=== PATIENT | male | born 1960 | race American Indian/Alaskan Native ===

== ENCOUNTER 2019-11-23 08:28 | Day surgery (SDC) | payer OTHER ==
[2019-11-23] MEDS ORDERED: SODIUM CHLORIDE 0.9% 1000 ML 1,000 ML IV SCH (09:15)
--- NOTE | 2019-11-23 09:17 | Anesthesia Consultation ---
Anesthesia Consult and Med Hx Date of service: 11/23/19 - Airway Anesthetic Teeth Evaluation: Good ROM Head & Neck: Adequate Mental/Hyoid Distance: Adequate Mallampati Class: Class II Intubation Access Assessment: Good - Pulmonary Exam CTA: Yes - Cardiac Exam Cardiac Exam: No Murmur - Pre-Operative Health Status ASA Pre-Surgery Classification: ASA2 Proposed Anesthetic Plan: MAC - Pulmonary Hx Smoking: Yes
--- NOTE | 2019-11-23 09:18 | Anesthesia Day of Surgery ---
Anesthesia Day of Surgery - Day of Surgery Patient Examined: Yes Patient H&P Reviewed: Yes Patient is NPO: Yes
[2019-11-23] MEDS ORDERED: PROPOFOL 200 MG/20 ML VIAL IV ONE ×2 (10:00)
--- NOTE | 2019-11-23 10:23 | Procedure Note ---
Date of procedure: 11/22/19 Pre-op diagnosis: Colon Polyp Screening/ P/H/O Colon Polyps/ F/H/O Cancer (father) Post-op diagnosis: other (Solitary,Small rectal Polyp (possibly Hyperplastic)/Minor,Internal Hemorrhoid/ Normal, Ileal Mucosa) Procedure: Colonoscopy with Cold Biopsy Anesthesia: MAC Surgeon: FAISAL CLARKE Estimated blood loss: minimal Pathology: list Specimen disposition: to lab Condition: stable Disposition: same day (Avoid aspirin and NSAID for 4 days; otherwise resume home medication. follow up in 1 to 2 weeks ([phone]).)
--- NOTE | 2019-11-23 10:25 | Operative Report ---
PROCEDURE: Colonoscopy. INDICATIONS: The patient is a 59-year-old -Irish gentleman with a family history of cancer, prior history of colon polyp, who had a colonoscopy done as part of colon polyp screening. DESCRIPTION OF PROCEDURE: Procedure was done after getting informed consent with MAC anesthesia. Initial rectal exam was unremarkable. Instrument was passed through the rectum onto the cecum, which was identified by the ileocecal valve and the appendiceal orifice. Visualization was fair to good. The cecum was also visualized on the retroverted view. No additional pathology was noted. The terminal ileum was intubated showed normal mucosa, cecum, ascending colon, transverse colon, descending colon, and sigmoid showed normal mucosa. There was no evidence of any polyps, colitis or diverticular disease. The rectum showed small polyp, possibly hyperplastic, removed by cold biopsy with minimal bleeding and the rectum also showed minor internal hemorrhoid on the retroverted view. ASSESSMENT: Colon polyp screening, family history of cancer, solitary small rectal polyp, possibly hyperplastic. Minor internal hemorrhoid. Normal ileal mucosa. There was minimal bleeding from the biopsy site. No complications associated with the procedure. The patient will be asked to avoid aspirin and aspirin-related products and anticoagulants for the next 4 days. Otherwise, resume home medication and follow up in the office in 1-2 weeks' time. The procedure was done in the GI lab with assistance of the GI lab team, which included RN, Oma Noyola and with assistance with Nelson torres and also with the assistance of anesthesia. JOB# [id number] SPARKLE/MISTY
[2019-11-23] MEDS ORDERED: WATER FOR IRRIG STERILE 250 ML BOTTLE IR ONE (10:33)
[2019-11-23 11:42] VITALS: BP 120/69
== END 2019-11-23 08:29 | disposition home or self-care (01) ==
LOC: GIO 08:28
DX: Z12.11 Encounter for screening for malignant neoplasm of colon (principal); K62.1 Rectal polyp; K64.8 Other hemorrhoids; Z80.0 Family history of malignant neoplasm of digestive organs; Z86.010 Personal history of colon polyps; Z98.890 Other specified postprocedural states
CPT/HCPCS: 45380; 88305; J2704; J7030